=== PATIENT | female | born 1985 | race Caucasian/White ===

== ENCOUNTER 2017-01-31 23:52 | Emergency (ER) | payer OTHER ==
[~2017-01-31] VITALS: Ht 167.6 cm; Wt 89.8 kg
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
[~2017-01-31 23:52] MED LIST: ALBUTEROL0.83 MG/ML; ALBUTEROL17 GM; ALBUTEROL17 GM INH; BACITRACIN30 GM TOP; BACTRIM DS TABL1 TA1 PO; BACTRIM DS TABL1 TAB PO; CIPRO250 MG PO; COLY-MYCIN S EAR5 ML OT; CORTIZONE-1057 GM; CYMBALTA PO; DICLOFENAC PO; FLEXERIL PO; FLEXERIL10 MG PO; FLOXIN10 ML OT; IBUPROFEN; IBUPROFEN600 MG PO; IBUPROFEN800 MG PO; IRON1 TA1 PO; KLONOPIN PO; LAMICTAL; LAMICTAL PO; LORTAB 5/500 TA1 TA1 PO; NAPROSYN500 MG PO; NAPROXEN PO; ORUDIS75 M1 DOB; PEPCID PO; PHENERGAN DM1 ML PO; PHENERGAN25 MG PO; PRENATAL PO; PROVENTIL INH0.5 ML IH; PROZAC PO; SINGULAIR; TRAZODONE; TRAZODONE PO; TYLENOL #3 PO; ULTRAM PO; VICODIN 5/1 TAB 5/50 PO; VISTARIL; ZITHROMAX PO; ZITHROMAX1 G/PKT PO
[2017-02-01] MEDS ORDERED: TYLENOL #3 PO (00:09)
[2017-02-01] MEDS ORDERED: NEURONTIN300 MG PO (00:09)
[2017-02-01] MEDS ORDERED: HYDROCODON-ACE1 EAC9 PO (00:09)
[2017-02-01] MEDS ORDERED: MAGNESIUM OXID200 MG PO (00:10)
== END 2017-02-01 02:10 | disposition home or self-care (01) ==
LOC: SED 23:52
DX: S16.1XXA Strain of muscle, fascia and tendon at neck level, initial encounter (principal); S80.01XA Contusion of right knee, initial encounter; Z79.899 Other long term (current) drug therapy; Z79.891 Long term (current) use of opiate analgesic; Z88.0 Allergy status to penicillin; Z88.8 Allergy status to other drugs, medicaments and biological substances; Z88.1 Allergy status to other antibiotic agents; V49.40XA Driver injured in collision with unspecified motor vehicles in traffic accident, initial encounter
CPT/HCPCS: 72040; 73562; 99283